=== PATIENT | male | born 1995 | race Caucasian/White ===

== ENCOUNTER → 2018-11-02 | Outpatient (CLI) | payer OTHER ==
--- NOTE | 2018-11-03 08:26 | REP ---
MRI left shoulder without contrast: History: Left shoulder pain. No known injury. History of popping out. Question instability. Labral pathology. No comparison radiographs are available. Technique: Axial, oblique coronal and oblique sagittal imaging planes are utilized. T1 and T2-weighted scans were obtained in the usual fashion with and without fat saturation. MRI findings: The acromioclavicular joint is normally aligned. There is a subacromial subdeltoid bursal effusion. There is a small quantity of glenohumeral joint fluid as well. The humeral head is posteriorly subluxed relative to the glenoid. The glenoid is shallow. There is a posterior glenoid labral cartilage tear with small para labral cyst formation associated with this. 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 There is redundant synovium in anterior labral tissue at the anterior labrum. No loose body is appreciated. The subscapularis tendon shows tendonitis tendinosis change and some swelling. Biceps tendon appears to be intact. There is tendinosis in the supraspinatus tendon as well. No focal cuff tear is appreciated. The infraspinatus appears intact. 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 Posterior glenoid labral disruption and cyst formation are seen. Tendonitis tendinosis change is seen in the subscapularis and supraspinatus tendons. There is a subacromial subdeltoid bursal effusion and a small amount of glenohumeral joint fluid is seen. Electronically Signed by Naman Gee MD 11/03/2018 09:44 A
== END ==
LOC: M RAD 17:36
PROVIDERS: ATTEND Family Medicine
DX: Q74.0 Other congenital malformations of upper limb(s), including shoulder girdle (principal)

== ENCOUNTER 2019-02-13 00:57 | Emergency (ER) | payer OTHER ==
[~2019-02-13] VITALS: Ht 182.9 cm; Wt 75.0 kg
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
[2019-02-13] MEDS ORDERED: DERMABOND TOPICAL SKIN ADHESIVE TOP ONE (02:15)
[2019-02-13 02:52] VITALS: BP 132/78
== END 2019-02-13 02:54 | disposition home or self-care (01) ==
LOC: M ED 00:57
DX: S01.01XA Laceration without foreign body of scalp, initial encounter (principal); S01.81XA Laceration without foreign body of other part of head, initial encounter; Y04.0XXA Assault by unarmed brawl or fight, initial encounter; Y92.89 Other specified places as the place of occurrence of the external cause

== ENCOUNTER 2019-02-17 11:38 | Emergency (ER) | payer OTHER ==
[~2019-02-17] VITALS: Ht 182.9 cm; Wt 77.5 kg
[2019-02-17] MEDS ORDERED: IBUP-1022 PO (11:43)
[2019-02-17 12:44] VITALS: BP 145/87
== END 2019-02-17 12:45 | disposition home or self-care (01) ==
LOC: M ED 11:38
DX: S00.83XD Contusion of other part of head, subsequent encounter (principal); Y04.8XXD Assault by other bodily force, subsequent encounter

== ENCOUNTER 2019-03-09 07:26 | Day surgery (SDC) | payer OTHER ==
[~2019-03-09] VITALS: Ht 182.9 cm; Wt 74.8 kg
[~2019-03-09 07:26] MED LIST: EPINEPHrine 1MG/ML INJ 30ML MD-VIAL As Ordered ONE; IBUP-1022 PO; LIDOCAINE 1% MDV 20ML VIAL As Ordered ONE; LR 1,000 ML IV ONE; ceFAZolin SOD 2 GM in IV 1 EA IV ONE
[2019-03-09] MEDS ORDERED: ROPIvacaine 0.5% 30 ML INJECTION (J2795 PER 1MG) ONE (07:27)
[2019-03-09] MEDS ORDERED: EPINEPHrine INJ 1 MG/ML 1ML AMP ONE (07:27)
[2019-03-09] MEDS ORDERED: fentaNYL 100 MCG/2 ML INJECTION (J3010) As Ordered ONE (08:45)
[2019-03-09] MEDS ORDERED: MIDAZOLAM INJ 2 MG/2 ML VIAL (J2250) As Ordered ONE ×2 (08:45→10:13)
[2019-03-09] MEDS ORDERED: fentaNYL 100 MCG/2 ML INJECTION (J3010) IV ONE (10:00)
[2019-03-09] MEDS ORDERED: MIDAZOLAM INJ 2 MG/2 ML VIAL (J2250) IV ONE (10:00)
[2019-03-09] MEDS ORDERED: KETOROLAC 60 MG/2 ML VIAL (J1885) As Ordered ONE ×2 (10:13→10:15)
[2019-03-09] MEDS ORDERED: dexameTHASONE 4 MG/ML 1ML VIAL (J1100) As Ordered ONE ×2 (10:13→10:15)
[2019-03-09] MEDS ORDERED: PROPOFOL 200 MG/20 ML VIAL As Ordered ONE (10:13)
[2019-03-09] MEDS ORDERED: SUGAMMADEX SODIUM 500 MG/5 ML VIAL (BRIDION) As Ordered ONE (10:13)
[2019-03-09] MEDS ORDERED: ROCURONIUM BROMIDE 50 MG/5 ML VIAL As Ordered ONE ×2 (10:13→10:25)
[2019-03-09] MEDS ORDERED: ACETAMINOPHEN 1000MG 100ML IV BTL (OFIRMEV) (J0131 PER 10MG) As Ordered ONE (10:13)
[2019-03-09] MEDS ORDERED: LIDOCAINE 2% INJ 100 MG/5 ML SDV (FOR ANES.) As Ordered ONE (10:13)
[2019-03-09] MEDS ORDERED: fentaNYL 250 MCG/5 ML INJECTION (J3010) As Ordered ONE (10:13)
[2019-03-09] MEDS ORDERED: METOCLOPRAMIDE INJ 10MG/2ML VIAL (J2765) As Ordered ONE ×2 (10:13→10:15)
[2019-03-09] MEDS ORDERED: ONDANSETRON 4MG/2ML VIAL (J2405) As Ordered ONE ×2 (10:13→10:15)
[2019-03-09] MEDS ORDERED: ONDANSETRON 4MG/2ML VIAL (J2405) IV PRN (12:30)
[2019-03-09] MEDS ORDERED: oxyCODONE 5MG TAB PO PRN (12:30)
[2019-03-09] MEDS ORDERED: LR 1,000 ML IV SCH (12:30)
[2019-03-09] MEDS ORDERED: fentaNYL 100 MCG/2 ML INJECTION (J3010) IV PRN (12:30)
[2019-03-09 13:57] VITALS: BP 129/69
--- NOTE | 2019-03-09 19:43 | RO ---
DATE OF PROCEDURE: 03/09/2019 PREOPERATIVE DIAGNOSIS: Left shoulder posterior instability. POSTOPERATIVE DIAGNOSIS: Left shoulder posterior instability. PROCEDURE: Left shoulder arthroscopic posterior labral repair. SURGEON: Dr. Jona Fung RESIDENTIAL REAL ESTATE SALES MANAGER: KATIE Amaya ANESTHESIA: Preoperative nerve block plus general. IV FLUIDS: Lactated Ringer's. ESTIMATED BLOOD LOSS: 5 mL. IMPLANTS: Arthrex 2.9 mm BioComposite PushLock anchors times four with labral tape. CLOSURE: Nylon. DESCRIPTION OF PROCEDURE: The patient was identified in the preoperative holding area. The left shoulder was marked by myself. He had an interscalene nerve block by anesthesia. He was then brought into the operating room, placed supine on a well-padded operating room (OR) table with a beanbag. General anesthesia was induced. He received appropriate IV antibiotics within 1 hour of incision. Exam under anesthesia revealed 180 degrees of forward flexion, 90 of external rotation, grade 3 posterior load and shift, grade 1 plus anterior load and shift. The patient was then placed into the right side down lateral decubitus position with an axillary roll and all bony prominences were well padded. Bilateral Venodyne boots for deep vein thrombosis (DVT) prophylaxis. The left arm was placed into the Arthrex STaR Sleeve lateral decubitus traction barnett, 10 pounds of traction. The left shoulder was then prepped and draped in a normal sterile fashion with ChloraPrep. Prior to incision, time-out was performed per hospital protocol. Jonathan Dobson was present for the entire procedure and participated in all essential portions of the procedure. This included patient positioning and draping, holding the arthroscope, providing traction to the arm to avoid chondral damage during anchor placement, retrieving sutures arthroscopically and wound closure and applying the sling. A standard posterior viewing portal was made with 11-blade, the 30-degree arthroscope was introduced into the joint. Diagnostic arthroscopy revealed no tearing of the anterior- superior labrum. The long head of the biceps was in good condition. There was no tearing of the rotator cuff. Humeral head was posteriorly subluxated. There was extensive tearing of the inferior and posterior labrum with significant free edge fraying. An anterior working portal was established just above the subscapularis and a purple Arthrex cannula was placed. A second cannula was placed high in the rotator interval just anterior to the supraspinatus. I then used the shaver to perform a labral debridement, removing the free edge torn posterior labrum. The arthroscope was then placed through the anterior-superior portal, which gave a great view of the posterior and inferior labrum, again confirming an extensive posterior and inferior labral tear with the humeral head subluxated posteriorly. There was no bumper, and the posterior capsule was significantly stretched. I then used the Arthrex percutaneous labral repair kit to create a modified posterolateral portal to give a better angle at drilling the glenoid. The shaver was used to clean up any frayed labral tissue and then the hooked cautery and labral elevators were used to subperiosteally elevate posterior labrum off the glenoid and to create a bleeding surface. A SutureLasso was then used to shuttle labral tape through the posterior-inferior labrum and capsule and then that was loaded through a 2.9 mm PushLock anchor. The appropriate drill bit was used to create a socket in the posterior-inferior glenoid. The anchor was then docked, sutures tensioned and then the anchor malleted in place per routine with excellent fixation. Sutures cut with the arthroscopic heel cutter. I then placed an additional three PushLock anchors, so a total of four PushLock anchors, all with labral tape, working my way up superiorly along the posterior glenoid. I grasped a greater amount of capsule than typical due to the significant degree of actual instability, and his dramatically positive physical exam. At the completion of the case, we had a nice repair of the posterior labrum with a nice posterior bumper. The humeral head was centrally located on the glenoid. The shoulder was irrigated and drained. Portals were closed with nylon suture. Bulky sterile dressing was applied, and he was carefully placed into the ARC 2 sling in the gunslinger position. All counts correct times two. Complications: None. He was transferred to the post-anesthesia care unit (PACU) in stable condition.
== END 2019-03-09 14:27 | disposition home or self-care (01) ==
LOC: M SDC 07:26
PROVIDERS: ATTEND Orthopaedic Surgery
DX: M25.312 Other instability, left shoulder (principal); S43.432A Superior glenoid labrum lesion of left shoulder, initial encounter; X58.XXXA Exposure to other specified factors, initial encounter; Y93.9 Activity, unspecified; Y92.9 Unspecified place or not applicable; Y99.9 Unspecified external cause status
CPT/HCPCS: 29807; 64415; C1713; J0131; J0690; J1100; J1885; J2250; J2405; J2765; J2795; J3010

== ENCOUNTER 2019-06-30 08:03 | Day surgery (SDC) | payer OTHER ==
[~2019-06-30] VITALS: Ht 182.9 cm; Wt 72.1 kg
[~2019-06-30 08:03] MED LIST changes: -EPINEPHrine 1MG/ML INJ 30ML MD-VIAL As Ordered ONE; +ESCI10TA2 PO; -LIDOCAINE 1% MDV 20ML VIAL As Ordered ONE; +LIDOCAINE 1% MDV 20ML VIAL SQ PRN
[2019-06-30] MEDS ORDERED: LIDOCAINE 1% MDV 20ML VIAL ONE (08:04)
[2019-06-30] MEDS ORDERED: dexameTHASONE 10 MG/1 ML VIAL PRES.FREE (J1100) ONE (08:04)
[2019-06-30] MEDS ORDERED: ROPIvacaine 0.5% 30 ML INJECTION (J2795 PER 1MG) ONE (08:04)
[2019-06-30] MEDS ORDERED: fentaNYL 100 MCG/2 ML INJECTION (J3010) As Ordered ONE ×2 (10:08→13:36)
[2019-06-30] MEDS ORDERED: MIDAZOLAM INJ 2 MG/2 ML VIAL (J2250) As Ordered ONE ×2 (10:08→13:36)
[2019-06-30] MEDS ORDERED: fentaNYL 100 MCG/2 ML INJECTION (J3010) IV ONE (11:00)
[2019-06-30] MEDS ORDERED: MIDAZOLAM INJ 2 MG/2 ML VIAL (J2250) IV ONE (11:00)
[2019-06-30] MEDS ORDERED: EPINEPHrine INJ 1 MG/ML 1ML VIAL As Ordered ONE (12:50)
[2019-06-30] MEDS ORDERED: dexameTHASONE 4 MG/ML 1ML VIAL (J1100) As Ordered ONE (13:36)
[2019-06-30] MEDS ORDERED: ROCURONIUM BROMIDE 50 MG/5 ML VIAL As Ordered ONE (13:36)
[2019-06-30] MEDS ORDERED: propofoL 200 MG/20 ML VIAL As Ordered ONE (13:36)
[2019-06-30] MEDS ORDERED: KETOROLAC 60 MG/2 ML VIAL (J1885) As Ordered ONE (13:36)
[2019-06-30] MEDS ORDERED: LIDOCAINE 2% INJ 100 MG/5 ML SDV (FOR ANES.) As Ordered ONE (13:36)
[2019-06-30] MEDS ORDERED: SUGAMMADEX SODIUM 500 MG/5 ML VIAL (BRIDION) As Ordered ONE (13:36)
[2019-06-30] MEDS ORDERED: ONDANSETRON 4MG/2ML VIAL (J2405) As Ordered ONE (13:53)
[2019-06-30] MEDS ORDERED: HYDROMORPHONE HCL 0.5 MG/ 0.5 ML SYRINGE (J1170 PER 1) IV PRN (16:00)
[2019-06-30] MEDS ORDERED: oxyCODONE 5MG TAB PO PRN (16:00)
[2019-06-30] MEDS ORDERED: ONDANSETRON 4MG/2ML VIAL (J2405) IV PRN (16:00)
[2019-06-30] MEDS ORDERED: LR 1,000 ML IV SCH ×2 (16:00→16:15)
[2019-06-30] MEDS ORDERED: fentaNYL 100 MCG/2 ML INJECTION (J3010) IV PRN (16:00)
[2019-06-30 17:30] VITALS: BP 138/83
[2019-07-01] MEDS ORDERED: MIRTAZAPINE (15:12)
[2019-07-01] MEDS ORDERED: CLON0.1D3 TD (15:12)
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
== END 2019-06-30 17:37 | disposition home or self-care (01) ==
LOC: M SDC 08:03
PROVIDERS: ATTEND Orthopaedic Surgery
DX: M25.312 Other instability, left shoulder (principal); Z79.899 Other long term (current) drug therapy
CPT/HCPCS: 29807; 64415; C1713; J0690; J1100; J1885; J2250; J2405; J2795; J3010

== ENCOUNTER 2019-07-01 15:04 | Emergency (ER) | payer OTHER ==
[~2019-07-01] VITALS: Ht 182.9 cm; Wt 76.2 kg
[~2019-07-01 15:04] MED LIST changes: -LIDOCAINE 1% MDV 20ML VIAL SQ PRN; -LR 1,000 ML IV ONE; -ceFAZolin SOD 2 GM in IV 1 EA IV ONE
[2019-07-01] MEDS ORDERED: CLON0.1D3 TD (15:12)
[2019-07-01] MEDS ORDERED: MIRTAZAPINE (15:12)
[2019-07-01] MEDS ORDERED: PSEUDOEPHEDRINE 30 MG TAB PO STA (15:46)
[2019-07-01 17:30] VITALS: BP 132/63
== END 2019-07-01 17:31 | disposition home or self-care (01) ==
LOC: M ED 15:04
DX: N48.30 Priapism, unspecified (principal)

== ENCOUNTER 2019-07-13 09:08 | Emergency (ER) | payer OTHER ==
[~2019-07-13] VITALS: Ht 182.9 cm; Wt 72.7 kg
[~2019-07-13 09:08] MED LIST changes: +CLON0.1D3 TD; +MIRTAZAPINE
[2019-07-13] MEDS ORDERED: SUDAFED ×2 (09:15)
[2019-07-13] MEDS ORDERED: OXYC-517 (09:17)
[2019-07-13] MEDS ORDERED: CLON-412 (09:17)
[2019-07-13] MEDS ORDERED: PSEUDOEPHEDRINE 30 MG TAB PO STA ×2 (09:25→10:11)
[2019-07-13] MEDS: HYDROMORPHONE HCL 0.5 MG/ 0.5 ML SYRINGE (J1170 PER 1) IV PRN ×2 (09:58→10:34)
[2019-07-13 10:04] LABS: HEMATOCRIT 42.7 % (42.0-52.0); MEAN CORPUSCULAR HGB CONC 35.1 g/dl (32.0-36.5); MEAN CORPUSCULAR VOLUME 94.1 fl (80.0-96.0); PLATELET COUNT, AUTOMATED 196 10^3/uL (150-450); RED BLOOD COUNT 4.54 10^6/uL (4.30-6.10); WHITE BLOOD COUNT 4.5 10^3/uL (4.0-10.0)
[2019-07-13 10:30] LABS: BLOOD UREA NITROGEN 11 MG/DL (7-18); CALCIUM LEVEL 9.2 MG/DL (8.5-10.1); CARBON DIOXIDE LEVEL 34 MEQ/L (21-32); CHLORIDE LEVEL 105 MEQ/L (98-107); CREATININE FOR GFR 0.97 MG/DL (0.70-1.30); GLOMERULAR FILTRATION RATE > 60.0 (>60); GLUCOSE, FASTING 79 MG/DL (70-100); POTASSIUM SERUM 4.2 MEQ/L (3.5-5.1); SODIUM LEVEL 142 MEQ/L (136-145)
[2019-07-13] MEDS ORDERED: HYDROMORPHONE HCL 0.5 MG/ 0.5 ML SYRINGE (J1170 PER 1) IV PRN (11:30)
[2019-07-13] MEDS ORDERED: PHENYLephrine HCL 500 MCG/5 ML (100MCG/ML) SYRINGE (J2370) IV ONE (12:00)
[2019-07-13 13:00] VITALS: BP 142/72
--- NOTE | 2019-07-13 13:16 | SMCUROLCON ---
Urology Consultation General Date of Consultation 07/13/19 Reason For Consultation This patient is seen for Penile Issue. History of Present Illness This is a 24 y/o M w/ no significant PMH, presenting to the ER w/ a painful erection for approximately 6 hours. He notes that he woke up w/ the erection. This has happened once before, 2 wks ago. At that time he was given sudafed in the ER and his erection went down. He is not on trazodone. He notes that he is on lexapro and the dose of this was increased at the beginning of the month. He has no voiding complaints. He has no hx of trauma. Past Medical History Medical History None Surgical Hstory left shoulder surgery Medications Current Medications Current Medications Medications (Trade) Dose Ordered Sig/Odin Route PRN Reason Start Time Stop Time Status Last Admin Dose Admin Hydromorphone HCl (Dilaudid) 0.5 mg Q30M PRN IV MODERATE PAIN (PS 5-7) 07/13/19 10:00 07/13/19 10:34 DC 07/13/19 10:34 Hydromorphone HCl (Dilaudid) 0.5 mg Q30M PRN IV MODERATE PAIN (PS 5-7) 07/13/19 11:30 07/13/19 12:26 Pseudoephedrine HCl (Sudafed) 30 mg STAT STAT PO 07/13/19 09:25 07/13/19 09:26 DC Pseudoephedrine HCl (Sudafed) 30 mg STAT STAT PO 07/13/19 10:11 07/13/19 10:12 DC 07/13/19 10:27 Allergies Allergies: Coded Allergies: No Known Allergies (Unverified , 06/16/19) Review of Systems Constitutional: Denies: Fever, Chills, Sweats, Weakness, Malaise Skin: Denies: Rash, Lesions, Breakdown, Nail Changes Pulmonary: Denies: Dyspnea, Cough Cardiovascular: Denies Chest Pain, Denies Palpitations Gastrointestinal: Denies: Nausea, Vomiting, Abdominal Pain Genitourinary: Reports: Other Symptoms (prolonged and painful erection); Denies: Dysuria, Frequency, Incontinence, Hematuria, Retention Musculoskeletal: Denies: Neck Pain, Back Pain Neurological: Denies: Weakness, Numbness, Incoordination, Change in Speech Psych: Reports: Mood Normal Physical Examination General Exam: Alert, Cooperative, No Acute Distress Chest Exam: Normal air movement Heart Exam: Rate Normal Abdomen Exam: Soft Male Exam erect phallus Skin Exam: Nl turgor and temperature Neuro Exam: Normal Speech Psych Exam: Mental status NL, Mood NL Vital Signs/I&O Vital Signs Date Time Temp Pulse Resp B/P (MAP) Pulse Ox O2 Delivery O2 Flow Rate FiO2 07/13/19 12:26 19 07/13/19 10:54 56 138/92 100 Room Air 07/13/19 09:09 98.4 Laboratory Data 24H Labs Laboratory Tests 2 07/13/19 09:54: Nucleated Red Blood Cells % (auto) 0.0, Anion Gap 3L, Glomerular Filtration Rate > 60.0, Calcium Level 9.2 CBC/BMP Laboratory Tests 07/13/19 09:54 Assessment This is a 24 y/o M w/ his 2nd episode of priapism in 2 wks. Sudafed was given to the patient w/ no improvement in the priapism. I therefore aspirated out 30cc of old dark blood from the phallus w/ immediate detumescence. I then injected 200mcg of phenylephrine into the corpus cavernosum. The patient tolerated this well. He was then reevaluated approximately 10 minutes later and the erection was still gone. I explained that his increased dose of lexapro is likely the culprit. I recommended against taking it any more and that he speak w/ the prescriber about giving an alternate medication (something other than trazodone). He noted understanding. Plan - priapism resolved w/ corporal aspiration of old blood and injection of 200mcg of phenylephrine - monitor the patient for another hour for recurrent priapism and BP/HR changes - if he remains stable, ok for discharge home and f/u w/ urology clinic as needed IMELDA JONES MD Jul 13, 2019 13:16
== END 2019-07-13 13:46 | disposition home or self-care (01) ==
LOC: M ED 09:08
DX: N48.30 Priapism, unspecified (principal); Z79.899 Other long term (current) drug therapy
CPT/HCPCS: 54200; 80048; 85027; 99284; J1170; J2370

== ENCOUNTER 2019-07-19 15:02 | Emergency (ER) | payer OTHER ==
[~2019-07-19] VITALS: Ht 182.9 cm; Wt 72.8 kg
[~2019-07-19 15:02] MED LIST changes: +CLON-412; +OXYC-517; +SUDAFED
[2019-07-19] MEDS ORDERED: PHENYLEPHRINE INJ 10MG/ML VIAL (J2370) IV ONE (15:45)
[2019-07-19] MEDS ORDERED: HYDROMORPHONE HCL 0.5 MG/ 0.5 ML SYRINGE (J1170 PER 1) IV ONE ×2 (16:00→18:15)
[2019-07-19] MEDS ORDERED: PSEUDOEPHEDRINE 30 MG TAB PO STA (16:01)
[2019-07-19] MEDS: NS 1,000 ML IV SCH ×2 (16:46→20:56)
[2019-07-19] MEDS ORDERED: IBUP-1022 PO (20:08)
[2019-07-19] MEDS ORDERED: OXYCODONE/APAP 5MG/325MG(BULK FOR ED) 1 TABLET PO ONE (20:15)
[2019-07-19 20:56] VITALS: BP 121/62
== END 2019-07-19 20:58 | disposition home or self-care (01) ==
LOC: M ED 15:02
DX: N48.30 Priapism, unspecified (principal); Z79.899 Other long term (current) drug therapy
CPT/HCPCS: 96361; 96374; 96375; 96376; 99284; J1170